=== PATIENT | male | born 1975 | race Two or more races ===

== ENCOUNTER 2023-05-01 16:49 | Emergency (ER) | payer OTHER ==
[2023-05-01 17:07] VITALS: BP 140/97; PULSE 82; RESP 18; TEMP 98.7; BMI 26.6
== END 2023-05-01 17:54 | disposition home or self-care (01) ==
LOC: JER 16:49
DX: R21 Rash and other nonspecific skin eruption (principal); L29.9 Pruritus, unspecified
CPT/HCPCS: 99283-25

== ENCOUNTER 2023-05-09 14:03 | Emergency (ER) | payer OTHER ==
[2023-05-09 14:19] VITALS: BP 130/96; PULSE 88; RESP 18; TEMP 98.5; BMI 26.6
[2023-05-09 18:03] LABS: BASO % 0.3 % (0-2.0); EOS % 8.1 % (0-4.5); HEMATOCRIT 50.8 % (35.4-49); HEMOGLOBIN 16.3 GM/dL (11.7-16.9); LYMPH % 12.3 % (8-40); MCH 27.4 pg (25.7-33.7); MEAN CELL VOLUME 85.5 fl (80-96); MEAN PLT VOLUME 8.9 fl (7.5-11.1); MONO % 8.5 % (3.8-10.2); NEUT % 70.8 % (42.8-82.8); PLATELET COUNT 285 10^3/uL (134-434); RBC 5.94 M/mm3 (4.00-5.60); RDW 12.9 % (11.9-15.9); WHITE BLOOD COUNT 12.7 K/mm3 (4.0-10.0)
[2023-05-09 18:20] LABS: POTASSIUM 4.1 mmol/L (3.5-5.1)
[2023-05-09 18:22] LABS: CALCIUM 9.1 mg/dL (8.5-10.1)
[2023-05-09 18:23] LABS: ALBUMIN 4.1 g/dl (3.4-5.0); BLOOD UREA NITROGEN 33.6 mg/dL (7-18)
[2023-05-09 18:26] LABS: CREATININE 1.5 mg/dL (0.55-1.3)
[2023-05-09 18:27] LABS: BILIRUBIN,TOTAL 0.5 mg/dL (0.2-1)
[2023-05-09 18:28] LABS: TOT PROT 7.5 g/dl (6.4-8.2)
[2023-05-09 19:26] LABS: HIV INTERPRETATION NEGATIVE (NEGATIVE)
[2023-05-09] MEDS ORDERED: FLUCONAZOLE 150 MG TABLET PO ONE ×2 (20:13→20:15)
== END 2023-05-09 20:57 | disposition home or self-care (01) ==
LOC: JERFT 14:03
DX: R21 Rash and other nonspecific skin eruption (principal); L59.0 Erythema ab igne [dermatitis ab igne]; N28.9 Disorder of kidney and ureter, unspecified
CPT/HCPCS: 36415; 80053; 85025; 86780; 87389; 99283-25